=== PATIENT | female | born 1975 | race Caucasian/White ===

== ENCOUNTER 2018-12-13 21:24 | Emergency (ER) | payer MEDICAID ==
[~2018-12-13] VITALS: Ht 167.6 cm; Wt 82.2 kg
[2018-12-13 21:37] VITALS: BP 124/82
[2018-12-13] MEDS ORDERED: normal saline 1000ML IV soln IVB ONE (21:55)
[2018-12-13] MEDS ORDERED: ipratropium/albuterol 3ml nebule NEB ONE (21:55)
[2018-12-13] MEDS ORDERED: ketorolac trometh. 30mg/ml inj. IV ONE (21:55)
[2018-12-13] MEDS ORDERED: methylPREDNISolone sod succ 125mg/2ml vial IV ONE (21:55)
[2018-12-13 22:08] LABS: BASOPHILS % (AUTO) 0.6 % (0-1); EOSINOPHILS # (AUTO) 0.1 X10'3 (0-0.9); EOSINOPHILS % (AUTO) 1.7 % (0-6); HEMATOCRIT 41.2 % (35.0-45.0); HEMOGLOBIN 14.1 g/dl (12.0-16.0); LYMPHOCYTES # (AUTO) 1.6 X10'3 (1.1-4.8); LYMPHOCYTES % (AUTO) 18.9 % (21-51); MEAN CORPUSCULAR HEMOGLOBIN 29.1 PG (27.0-31.0); MEAN CORPUSCULAR HGB CONC 34.2 g/dL (33.0-36.5); MEAN CORPUSCULAR VOLUME 85.2 FL (78-98); MONOCYTES # (AUTO) 0.8 X10'3 (0-0.9); MONOCYTES % (AUTO) 9.1 % (2-12); NEUTROPHILS # (AUTO) 5.9 X10'3 (1.8-7.7); NEUTROPHILS % (AUTO) 69.7 % (42-75); PLATELET COUNT 239 X10'3 (140-440); RED BLOOD COUNT 4.84 X10'6 (4.20-5.60); RED CELL DISTRIBUTION WIDTH 13.1 % (11.5-14.5); WHITE BLOOD COUNT 8.5 X10'3 (4.5-11.0)
[2018-12-13] MEDS ORDERED: AMOX-419 PO (22:20)
[2018-12-13] MEDS ORDERED: PRED20TA PO (22:20)
[2018-12-13] MEDS ORDERED: ALBU6.7H9 INH (22:20)
[2018-12-13] MEDS ORDERED: GUAI120015 PO (22:20)
[2018-12-13 22:21] LABS: ALANINE AMINOTRANSFERASE 21 U/L (12-78); ALKALINE PHOSPHATASE 65 IU/L (46-116); ANION GAP 14 (8-16); ASPARTATE AMINO TRANSFERASE 18 U/L (10-37); BILIRUBIN,TOTAL 0.6 MG/DL (0.1-1.0); BLOOD UREA NITROGEN 10 MG/DL (7-18); BUN/CREATININE RATIO 13.7 (6.6-38.0); CALCIUM 8.7 MG/DL (8.5-10.1); CHLORIDE 103 MMOL/L (99-107); CREATININE 0.73 MG/DL (0.40-0.90); GLUCOSE 92 MG/DL (70-104); SODIUM 138 MMOL/L (135-145); TOTAL CARBON DIOXIDE 21.4 MMOL/L (24-32); eGFR 87 ML/MIN
[2018-12-13 22:22] LABS: POTASSIUM 3.6 MMOL/L (3.5-5.1)
[2018-12-13] MEDS ORDERED: CefTRIAXone 2gm/D5W 50ml 50 ML IV ONE (22:30)
--- NOTE | 2018-12-13 22:42 | NUR ---
PT GIVEN WARM BLANKETS AND UPDATED ON PLAN OF CARE, PT RESTING COMFORTABLY, RR EVEN AND UNLABORED
== END 2018-12-13 23:05 | disposition home or self-care (01) ==
LOC: ER 21:26
DX: E86.0 Dehydration (principal); J45.909 Unspecified asthma, uncomplicated; J18.9 Pneumonia, unspecified organism; J22 Unspecified acute lower respiratory infection; F17.200 Nicotine dependence, unspecified, uncomplicated; Z71.6 Tobacco abuse counseling
CPT/HCPCS: 36415; 71045; 80053; 85025; 94640; 94760; 96365; 96375; 99284; 99406; J0696; J1885; J2930; J7030